=== PATIENT | female | born 1980 | race Caucasian/White ===

== ENCOUNTER 2016-11-22 11:05 | Inpatient (IN) | payer BC ==
[2016-11-22] MEDS ORDERED: Sodium Chloride 0.9% 10 ML Syringe FLUSH PRN (11:32)
[2016-11-22] MEDS ORDERED: Ampicillin 2 GM in Sodium Chloride 0.9% 100 ML IV ONE (11:32)
[2016-11-22] MEDS ORDERED: Butorphanol 1 MG/ML SDV IVPUSH PRN (11:32)
[2016-11-22] MEDS ORDERED: Terbutaline 1 MG/ML SDV SUBCUT PRN (11:32)
[2016-11-22] MEDS ORDERED: Methylergonovine 0.2 MG/1 ML Amp IM PRN (11:32)
[2016-11-22] MEDS ORDERED: Lidocaine 1% 50 ML MDV INJECT PRN (11:32)
[2016-11-22] MEDS ORDERED: Sodium Chloride 0.9% 2.5 ML Syringe FLUSH PRN (11:32)
[2016-11-22] MEDS ORDERED: Misoprostol 200 MCG Tab PO PRN (11:32)
[2016-11-22] MEDS ORDERED: Water For Irrigation,Sterile 1,000 ML Container IRR PRN (11:32)
[2016-11-22] MEDS ORDERED: Carboprost Tromethamine 250 MCG/1 ML Amp IM PRN (11:32)
[2016-11-22] MEDS ORDERED: Nalbuphine 10 MG/1 ML Vial IVPUSH PRN (11:32)
[2016-11-22] MEDS ORDERED: Oxytocin/Lactated Ringers 30 UNIT/500 ML BAG IV SCH ×2 (11:45)
[2016-11-22] MEDS: Lactated Ringers 1,000 ML IV SCH ×2 (12:21→18:24)
[2016-11-22] MEDS ORDERED: Ampicillin 1 GM in Sodium Chloride 0.9% 50 ML IV SCH (15:45)
[2016-11-22] MEDS ORDERED: fentaNYL 100 MCG/2 ML SDV ONE ×2 (18:34)
[2016-11-22] MEDS ORDERED: Ropivacaine HCl/PF 100 ML ONE (18:35)
--- NOTE | 2016-11-22 19:29 | PCM.PREANE ---
Preanesthetic Assessment - Anesthesia/Transfusion/Family Hx Anesthesia History: Prior Anesthesia Without Reaction Family History of Anesthesia Reaction: No Transfusion History: No Prior Transfusion(s) Intubation History: Unknown - Review of Systems General: No Symptoms Pulmonary: No Symptoms Cardiovascular: No Symptoms Gastrointestinal: No symptoms Neurological: No Symptoms Other: Reports: None - Physical Assessment Height: 1.63 m Weight: 74.843 kg ASA Class: 2 Mental Status: Alert & Oriented x3 Airway Class: Mallampati = 2 Dentition: Reports: Normal Dentition Thyro-Mental Finger Breadths: 3 Mouth Opening Finger Breadths: 3 ROM/Head Extension: Full Lungs: Clear to auscultation, Normal respiratory effort Cardiovascular: Regular Rate, Regular Rhythm - Lab Values: Laboratory Last Values WBC 7.41 K/uL (4.0-11.0) 11/22/16 12:12 RBC 4.12 M/uL (4.30-5.90) L 11/22/16 12:12 Hgb 11.4 g/dL (12.0-16.0) L 11/22/16 12:12 Hct 35.0 % (36.0-46.0) L 11/22/16 12:12 MCV 85.0 fL (80.0-98.0) 11/22/16 12:12 MCH 27.7 pg (27.0-32.0) 11/22/16 12:12 MCHC 32.6 g/dL (31.0-37.0) 11/22/16 12:12 RDW Std Deviation 47.0 fl (28.0-62.0) 11/22/16 12:12 RDW Coeff of Jose Roberto 15 % (11.0-15.0) 11/22/16 12:12 Plt Count 191 K/uL (150-400) 11/22/16 12:12 MPV 12.40 fL (7.40-12.00) H 11/22/16 12:12 Nucleated RBC % 0.0 /100WBC 11/22/16 12:12 Nucleated RBCs # 0 K/uL 11/22/16 12:12 Blood Type B NEGATIVE 11/22/16 12:12 Antibody Screen NEGATIVE 11/22/16 12:12 - Allergies Allergies/Adverse Reactions: Allergies Allergy/AdvReac Type Severity Reaction Status Date / Time No Known Allergies Allergy Verified 11/22/16 11:30 - Blood Blood Available: No - Anesthesia Plan Pre-Op Medication Ordered: None - Acknowledgements Anesthesia Type Planned: Epidural Pt an Appropriate Candidate for the Planned Anesthesia: Yes Alternatives and Risks of Anesthesia Discussed w Pt/Guardian: Yes Pt/Guardian Understands and Agrees with Anesthesia Plan: Yes PreAnesthesia Questionnaire ENGLISH [employer] History: Reports: , Other (See Below) Other OB/BYN History: history of abruptio placenta Neurological History: Reports: Migraines Psychiatric History: Reports: Depression Hematologic History: Reports: Anticoagulation Therapy, Other (See Below) Other Hematologic History: Factor V leinden mutation - SUBSTANCE USE Smoking Status *Q: Never Smoker Second Hand Smoke Exposure: No Recreational Drug Use History: No - CURRENT (IN HOUSE) MEDS Current Meds: Current Medications Butorphanol Tartrate (Stadol) 1 mg IVPUSH ASDIRECTED PRN PRN Reason: Pain Last Admin: 11/22/16 18:23 Dose: 1 mg Carboprost Tromethamine (Hemabate Ds) 250 mcg IM ASDIRECTED PRN PRN Reason: Post Hemorrhage Ampicillin Sodium 1 gm/ Sodium (Chloride) 50 mls @ 100 mls/hr IV Q4H [facility] Last Admin: 11/22/16 16:23 Dose: 100 mls/hr Lactated Ringer's (Ringers, Lactated) 1,000 mls @ 150 mls/hr IV ASDIRECTED [facility]O Last Infusion: 11/22/16 18:26 Dose: 999 mls/hr Oxytocin/Lactated Ringer's (Pitocin In Lr 30 Units/500 Ml) 30 unit in 500 mls @ 2 mls/hr IV TITRATE VETO; 2 MUNITS/MIN PRN Reason: Protocol Last Titration: 11/22/16 19:05 Dose: 999 munits/min, 999 mls/hr Lidocaine HCl (Xylocaine 1%) 50 ml INJECT .ONCE PRN PRN Reason: Laceration repair Methylergonovine Maleate (Methergine) 0.2 mg IM ASDIRECTED PRN PRN Reason: Post Hemorrhage Misoprostol (Cytotec) 200 mcg PO .ONCE PRN PRN Reason: Post Hemorrhage Nalbuphine HCl (Nubain) 10 mg IVPUSH ASDIRECTED PRN PRN Reason: Pain (severe 7-10) Stop: 11/24/16 11:33 Sodium Chloride (Saline Flush) 10 ml FLUSH ASDIRECTED PRN PRN Reason: Keep Vein Open Sodium Chloride (Saline Flush) 2.5 ml FLUSH ASDIRECTED PRN PRN Reason: Keep Vein Open Sterile Water (Sterile Water For Irrigation) 1,000 ml IRR ASDIRECTED PRN PRN Reason: delivery Last Admin: 11/22/16 19:15 Dose: 1,000 ml Terbutaline Sulfate (Brethine) 0.25 mg SUBCUT ASDIRECTED PRN PRN Reason: Tacysystole Discontinued Medications Fentanyl (Sublimaze) Confirm Administered Dose 100 mcg .ROUTE .STK-MED ONE Stop: 11/22/16 18:35 Fentanyl (Sublimaze) Confirm Administered Dose 100 mcg .ROUTE .STK-MED ONE Stop: 11/22/16 18:35 Ampicillin Sodium 2 gm/ Sodium (Chloride) 100 mls @ 200 mls/hr IV ONETIME ONE Stop: 11/22/16 12:01 Last Admin: 11/22/16 12:21 Dose: 200 mls/hr Oxytocin/Lactated Ringer's (Pitocin In Lr 30 Units/500 Ml) 30 unit in 500 mls @ 999 mls/hr IV ASDIRECTED [facility]ETO PRN Reason: 999 MUNITS/MIN Stop: 11/22/16 12:16 Ropivacaine (Naropin 0.2%) Confirm Administered Dose 100 mls @ as directed .ROUTE .STK-MED ONE Stop: 11/22/16 18:36
[2016-11-22] MEDS ORDERED: oxyCODONE 5 MG Tab PO PRN (19:34)
[2016-11-22] MEDS ORDERED: Witch Hazel Medicated Pads 40/Jar TOP PRN (19:34)
[2016-11-22] MEDS ORDERED: Bisacodyl 10 MG Supp RECTAL PRN (19:34)
[2016-11-22] MEDS ORDERED: Lanolin 100% Cream 7 GM Tube TOP PRN (19:34)
[2016-11-22] MEDS ORDERED: Benzocaine/Menthol 20%-0.5% Spray 78 GM Cannister TOP PRN (19:34)
[2016-11-22] MEDS ORDERED: Acetaminophen 500 MG Tab PO PRN ×2 (19:34)
[2016-11-22] MEDS ORDERED: Ibuprofen 400 MG Tab PO PRN (19:34)
--- NOTE | 2016-11-23 02:01 | OR ---
SURGEON: Ludy Cano MD DATE OF PROCEDURE: 11/22/2016 PREOPERATIVE DIAGNOSES: 1. Term at 38 weeks gestation. 2. Oligohydramnios. 3. GBS positive. POSTOPERATIVE DIAGNOSES: 1. Term at 38 weeks gestation. 2. Oligohydramnios. 3. GBS positive. 4. Delivered. PROCEDURES: 1. Spontaneous vaginal delivery. 2. Repair of first-degree perineal laceration. ANESTHESIA: Epidural. ESTIMATED BLOOD LOSS: 150 mL. COMPLICATIONS: None. DISPOSITION: Mother and baby stable in Labor and Delivery room, bonding. FINDINGS: Female , weight 2970 g. Apgars 8 and 9 at 1 and 5 minutes respectively. Grossly normal placenta with 3-vessel cord. First-degree perineal laceration. BRIEF HISTORY: The patient is a 36-year-old G4, P3, who was seen today in the clinic for routine visit, at which she had a biophysical profile, which showed oligohydramnios with a DVP of 0.98 (no 2 x 2 pocket was visualized). Otherwise, the BPP was 8/10. The patient declined leakage of fluid, vaginal bleeding and reported active fetus. Her care is complicated by history of Factor V Leiden deficiency, for which she has been on prophylactic heparin (10,000 units SQ b.i.d). The patient has not taking any heparin in the last 24 hours as she has been experiencing irregular contractions. GBS positive. No amniotic fluid was seen in the vagina and AmniSure was performed, which was negative. On examination, she was 1-2 cm dilated, 70% effaced, station -2. Discussed oligohydramnios at term with couple, she was sent over to Labor and Delivery for induction of labor with oxytocin. She received Ampicillin for GBS prophylaxis. Oxytocin was commenced, artificial rupture of membranes was performed a few hours later,she was 3 cm dilated then,a scanty amount of clear amniotic fluid was seen. She then received epidural for pain management. Shortly after the epidural, she was re-examined and found to be fully dilated, this was actually about an hour and a half after the artificial rupture of membrane was performed. heart tracing was a category I. She commenced active pushing, pushing quite well, bringing the head down to a + 4 and was set up for delivery in a modified dorsal lithotomy position. DESCRIPTION OF PROCEDURE: She had a spontaneous vaginal delivery of a live female in AYANNA position, loose nuchal cord, which was easily reduced. Clear amniotic fluid at delivery. Anterior and posterior shoulders and the rest of the baby was delivered without difficulty. The baby was vigorous and cried spontaneously at and was delivered onto the maternal abdomen, delayed cord clamping was performed, and the cord was cut. Cord blood and gas samples were obtained. With delivery of the infant, oxytocin infusion was converted to titration for active management of third stage of labor. Placenta was delivered by controlled cord traction, appeared to be complete and intact. Uterine massage was performed. The uterus was found to be well contracted. Examination of the perineum revealed a first-degree laceration, which was repaired with 3-0 Vicryl suture, hemostatic post repair. The patient tolerated the procedure well. Instrument, needle, and sponge counts were correct at the end of the delivery. ADUMVIV / MODL /[id number] MTDD
--- NOTE | 2016-11-23 06:06 | PCM.PNPP ---
- General Info Date of Service: 11/23/16 Functional Status: Reports: pain controlled, tolerating diet, ambulating, urinating - Review of Systems General: Denies: Fever, Weakness, Chills HEENT: Denies: headaches Pulmonary: Denies: shortness of breath, cough Cardiovascular: Denies: Chest Pain, Palpitations, Dyspnea on Exertion Gastrointestinal: Denies: Abdominal pain Genitourinary: Denies: dysuria, incontinence Psychiatric: Denies: depression, mood lability, anxiety - General Info Date of Service: 11/23/16 - Patient Data Vital Signs - most recent: Last Vital Signs Temp 36.8 C 11/23/16 04:00 Pulse 81 11/23/16 04:00 Resp 15 11/23/16 04:00 BP 122/76 11/23/16 04:00 Pulse Ox 97 11/23/16 04:00 Weight - most recent: 165 lb Lab Results - last 24 hrs: Laboratory Results - last 24 hr 11/22/16 11/22/16 11/23/16 Range/Units 12:12 12:12 04:55 WBC 7.41 (4.0-11.0) K/uL RBC 4.12 L (4.30-5.90) M/uL Hgb 11.4 L 10.2 L (12.0-16.0) g/dL Hct 35.0 L 30.9 L (36.0-46.0) % MCV 85.0 (80.0-98.0) fL MCH 27.7 (27.0-32.0) pg MCHC 32.6 (31.0-37.0) g/dL RDW Std Deviation 47.0 (28.0-62.0) fl RDW Coeff of Jose Roberto 15 (11.0-15.0) % Plt Count 191 (150-400) K/uL MPV 12.40 H (7.40-12.00) fL Nucleated RBC % 0.0 /100WBC Nucleated RBCs # 0 K/uL Blood Type B NEGATIVE Antibody Screen NEGATIVE Med Orders - Current: Current Medications Acetaminophen (Tylenol Extra Strength) 500 mg PO Q4H PRN PRN Reason: Pain Acetaminophen (Tylenol Extra Strength) 1,000 mg PO Q4H PRN PRN Reason: Pain Benzocaine/Menthol (Dermoplast Pain Relief 20%-0.5% [place]) 78 gm TOP ASDIRECTED PRN PRN Reason: Perineal Comfort Measure Bisacodyl (Dulcolax) 10 mg RECTAL .ONCE PRN PRN Reason: Constipation Docusate Sodium (Colace) 100 mg PO BID PRN PRN Reason: Constipation Emollient Ointment (Lansinoh Hpa) 0 gm TOP ASDIRECTED PRN PRN Reason: Sore Nipples Ibuprofen (Motrin) 400 mg PO Q4H PRN PRN Reason: Pain Ibuprofen (Motrin) 800 mg PO Q6H PRN PRN Reason: Pain Oxycodone HCl (Oxycodone) 5 mg PO Q2H PRN PRN Reason: Pain Witch Jessica (Tucks) 1 pad TOP ASDIRECTED PRN PRN Reason: comfort care Discontinued Medications Butorphanol Tartrate (Stadol) 1 mg IVPUSH ASDIRECTED PRN PRN Reason: Pain Last Admin: 11/22/16 18:23 Dose: 1 mg Carboprost Tromethamine (Hemabate Ds) 250 mcg IM ASDIRECTED PRN PRN Reason: Post Hemorrhage Fentanyl (Sublimaze) Confirm Administered Dose 100 mcg .ROUTE .STK-MED ONE Stop: 11/22/16 18:35 Fentanyl (Sublimaze) Confirm Administered Dose 100 mcg .ROUTE .STK-MED ONE Stop: 11/22/16 18:35 Ampicillin Sodium 2 gm/ Sodium (Chloride) 100 mls @ 200 mls/hr IV ONETIME ONE Stop: 11/22/16 12:01 Last Admin: 11/22/16 12:21 Dose: 200 mls/hr Ampicillin Sodium 1 gm/ Sodium (Chloride) 50 mls @ 100 mls/hr IV Q4H [facility] Last Admin: 11/22/16 16:23 Dose: 100 mls/hr Lactated Ringer's (Ringers, Lactated) 1,000 mls @ 150 mls/hr IV ASDIRECTED [facility] Last Infusion: 11/22/16 18:26 Dose: 999 mls/hr Oxytocin/Lactated Ringer's (Pitocin In Lr 30 Units/500 Ml) 30 unit in 500 mls @ 999 mls/hr IV ASDIRECTED [facility] PRN Reason: 999 MUNITS/MIN Stop: 11/22/16 12:16 Oxytocin/Lactated Ringer's (Pitocin In Lr 30 Units/500 Ml) 30 unit in 500 mls @ 2 mls/hr IV TITRATE VETO; 2 MUNITS/MIN PRN Reason: Protocol Last Titration: 11/22/16 19:05 Dose: 999 munits/min, 999 mls/hr Ropivacaine (Naropin 0.2%) Confirm Administered Dose 100 mls @ as directed .ROUTE .STK-MED ONE Stop: 11/22/16 18:36 Lidocaine HCl (Xylocaine 1%) 50 ml INJECT .ONCE PRN PRN Reason: Laceration repair Methylergonovine Maleate (Methergine) 0.2 mg IM ASDIRECTED PRN PRN Reason: Post Hemorrhage Misoprostol (Cytotec) 200 mcg PO .ONCE PRN PRN Reason: Post Hemorrhage Nalbuphine HCl (Nubain) 10 mg IVPUSH ASDIRECTED PRN PRN Reason: Pain (severe 7-10) Stop: 11/24/16 11:33 Sodium Chloride (Saline Flush) 10 ml FLUSH ASDIRECTED PRN PRN Reason: Keep Vein Open Sodium Chloride (Saline Flush) 2.5 ml FLUSH ASDIRECTED PRN PRN Reason: Keep Vein Open Sterile Water (Sterile Water For Irrigation) 1,000 ml IRR ASDIRECTED PRN PRN Reason: delivery Last Admin: 11/22/16 19:15 Dose: 1,000 ml Terbutaline Sulfate (Brethine) 0.25 mg SUBCUT ASDIRECTED PRN PRN Reason: Tacysystole - Interaction Disposition, : in Room with Family Interaction: Holding Infant Infant Feeding: Attempted ; Nursed Fair/Poor, Continues to Breastfeed Support Person: - Recovery Exam Fundal Tone: Firm Fundal Level: At Umbilicus Fundal Placement: Midline Lochia Amount: Scant Lochia Color: Rubra/Red Perineum Description: Intact, Minimal Bruising/Swelling Episiotomy/Laceration: Approximated Bladder Status: Nonpalpable Urinary Elimination: Voided - Exam General: alert, oriented Lungs: Clear to auscultation, Normal respiratory effort Cardiovascular: Regular Rate, Regular Rhythm Abdomen: soft, no tenderness, no distension Extremities: no edema Neurological: no new focal deficit Psy/Mental Status: alert, normal affect, normal mood - Problem List & Annotations (1) Vaginal delivery SNOMED Code(s): 082168548 Code(s): O80 - ENCOUNTER FOR FULL-TERM UNCOMPLICATED DELIVERY Status: Acute Current Visit: Yes (2) Factor 5 Leiden mutation, heterozygous SNOMED Code(s): 610523947 Code(s): D68.51 - ACTIVATED PROTEIN C RESISTANCE Status: Acute Current Visit: Yes - Problem List Review Problem List Initiated/Reviewed/Updated: Yes - My Orders Last 24 Hours: My Active Orders 11/22/16 19:34 Patient Status [ADT] Routine May Shower [RC] ASDIRECTED Up ad Ricarda [RC] ASDIRECTED Vital Signs [RC] PER UNIT ROUTINE Acetaminophen [Tylenol Extra Strength] 1,000 mg PO Q4H PRN Acetaminophen [Tylenol Extra Strength] 500 mg PO Q4H PRN Benzocaine/Menthol [Dermoplast Pain Relief 20%-0.5% [place]] 78 gm TOP ASDIRECTED PRN Bisacodyl [Dulcolax] 10 mg RECTAL .ONCE PRN Docusate Sodium [Colace] 100 mg PO BID PRN Ibuprofen [Motrin] 400 mg PO Q4H PRN Ibuprofen [Motrin] 800 mg PO Q6H PRN Lanolin [Lansinoh HPA] See Dose Instructions TOP ASDIRECTED PRN Witch Jessica [Tucks] 1 pad TOP ASDIRECTED PRN oxyCODONE 5 mg PO Q2H PRN Assess Lochia [WOMSER] Per Unit Routine Assess Uterine Involution [WOMSER] Per Unit Routine Breast Pump [WOMSER] Per Unit Routine Peripheral IV Discontinue [OM.PC] Routine Resuscitation Status Routine 11/22/16 19:35 Perineal Care [OM.PC] Per Unit Routine 11/23/16 Breakfast Regular Diet [DIET] - Assessment Assessment:: PPD#1 s/p , stable and afebrile - Plan Plan:: Patient might stay another night depending on how breast feeding is going. May restart prophylactic heparin this am- may use her own supply, 00105 units q 12 hours Reviewed discharge instructions- nothing in the vagina for 6 weeks Bleeding an infection precautions reviewed Follow up in 6 weeks. Patient may be discharged tonight depending on baby.
[2016-11-23] MEDS ORDERED: HEPARIN SODIUM SUBCUT SCH (08:00)
--- NOTE | 2016-11-23 09:09 | PCM48HPAN ---
Post Anesthesia Note - EVALUATION WITHIN 48HRS OF ANESTHETIC Vital Signs in Normal Range: Yes Patient Participated in Evaluation: Yes Respiratory Function Stable: Yes Airway Patent: Yes Cardiovascular Function Stable: Yes Hydration Status Stable: Yes Pain Control Satisfactory: Yes Nausea and Vomiting Control Satisfactory: Yes Mental Status Recovered: Yes - COMMENTS/OBSERVATIONS Free Text/Narrative:: Denies any complaints at this time
[2016-11-23] MEDS: Docusate Sodium 100 MG Cap PO PRN (09:14)
[2016-11-23] MEDS: HEPARIN SODIUM SUBCUT SCH ×2 (09:35→21:45)
[2016-11-23] MEDS: Ibuprofen 800 MG Tab PO PRN (20:08)
[2016-11-24] MEDS: Ibuprofen 800 MG Tab PO PRN (03:26)
[2016-11-24 09:23] VITALS: BP 108/65
[2016-11-24] MEDS: Docusate Sodium 100 MG Cap PO PRN (09:55)
[2016-11-24] MEDS: HEPARIN SODIUM SUBCUT SCH (09:56)
--- NOTE | 2016-11-24 13:04 | PCM.PNPP ---
- General Info Date of Service: 11/24/16 Functional Status: Reports: pain controlled, tolerating diet, ambulating, urinating - Review of Systems General: Reports: No Symptoms HEENT: Reports: no symptoms Pulmonary: Reports: no symptoms Cardiovascular: Reports: No Symptoms Gastrointestinal: Reports: No symptoms Genitourinary: Reports: no symptoms Musculoskeletal: Reports: no symptoms Skin: Reports: no symptoms Neurological: Reports: No Symptoms Psychiatric: Reports: no symptoms - General Info Date of Service: 11/24/16 - Patient Data Vital Signs - most recent: Last Vital Signs Temp 36.4 C 11/24/16 09:18 Pulse 82 11/24/16 09:18 Resp 16 11/24/16 09:18 BP 108/65 11/24/16 09:18 Pulse Ox 98 11/24/16 09:18 Weight - most recent: 74.843 kg Med Orders - Current: Current Medications Acetaminophen (Tylenol Extra Strength) 500 mg PO Q4H PRN PRN Reason: Pain Acetaminophen (Tylenol Extra Strength) 1,000 mg PO Q4H PRN PRN Reason: Pain Last Admin: 11/24/16 11:52 Dose: 1,000 mg Benzocaine/Menthol (Dermoplast Pain Relief 20%-0.5% [place]) 78 gm TOP ASDIRECTED PRN PRN Reason: Perineal Comfort Measure Bisacodyl (Dulcolax) 10 mg RECTAL .ONCE PRN PRN Reason: Constipation Docusate Sodium (Colace) 100 mg PO BID PRN PRN Reason: Constipation Last Admin: 11/24/16 09:55 Dose: 100 mg Emollient Ointment (Lansinoh Hpa) 0 gm TOP ASDIRECTED PRN PRN Reason: Sore Nipples Ibuprofen (Motrin) 400 mg PO Q4H PRN PRN Reason: Pain Ibuprofen (Motrin) 800 mg PO Q6H PRN PRN Reason: Pain Last Admin: 11/24/16 03:26 Dose: 800 mg Oxycodone HCl (Oxycodone) 5 mg PO Q2H PRN PRN Reason: Pain Heparin Sodium 5,000 Units/Ml Vial *Own Med 1 each SUBCUT Q12H [facility]ET[facility] Last Admin: 11/24/16 09:56 Dose: 1 each Witch Jessica (Tucks) 1 pad TOP ASDIRECTED PRN PRN Reason: comfort care Discontinued Medications Butorphanol Tartrate (Stadol) 1 mg IVPUSH ASDIRECTED PRN PRN Reason: Pain Last Admin: 11/22/16 18:23 Dose: 1 mg Carboprost Tromethamine (Hemabate Ds) 250 mcg IM ASDIRECTED PRN PRN Reason: Post Hemorrhage Fentanyl (Sublimaze) Confirm Administered Dose 100 mcg .ROUTE .STK-MED ONE Stop: 11/22/16 18:35 Fentanyl (Sublimaze) Confirm Administered Dose 100 mcg .ROUTE .STK-MED ONE Stop: 11/22/16 18:35 Heparin Sodium (Porcine) (Heparin Sodium) 10,000 units SUBCUT Q12H [facility]ETO Ampicillin Sodium 2 gm/ Sodium (Chloride) 100 mls @ 200 mls/hr IV ONETIME ONE Stop: 11/22/16 12:01 Last Admin: 11/22/16 12:21 Dose: 200 mls/hr Ampicillin Sodium 1 gm/ Sodium (Chloride) 50 mls @ 100 mls/hr IV Q4H [facility] Last Admin: 11/22/16 16:23 Dose: 100 mls/hr Lactated Ringer's (Ringers, Lactated) 1,000 mls @ 150 mls/hr IV ASDIRECTED [facility] Last Infusion: 11/22/16 18:26 Dose: 999 mls/hr Oxytocin/Lactated Ringer's (Pitocin In Lr 30 Units/500 Ml) 30 unit in 500 mls @ 999 mls/hr IV ASDIRECTED [facility] PRN Reason: 999 MUNITS/MIN Stop: 11/22/16 12:16 Oxytocin/Lactated Ringer's (Pitocin In Lr 30 Units/500 Ml) 30 unit in 500 mls @ 2 mls/hr IV TITRATE VETO; 2 MUNITS/MIN PRN Reason: Protocol Last Titration: 11/22/16 19:05 Dose: 999 munits/min, 999 mls/hr Ropivacaine (Naropin 0.2%) Confirm Administered Dose 100 mls @ as directed .ROUTE .STK-MED ONE Stop: 11/22/16 18:36 Lidocaine HCl (Xylocaine 1%) 50 ml INJECT .ONCE PRN PRN Reason: Laceration repair Methylergonovine Maleate (Methergine) 0.2 mg IM ASDIRECTED PRN PRN Reason: Post Hemorrhage Misoprostol (Cytotec) 200 mcg PO .ONCE PRN PRN Reason: Post Hemorrhage Nalbuphine HCl (Nubain) 10 mg IVPUSH ASDIRECTED PRN PRN Reason: Pain (severe 7-10) Stop: 11/24/16 11:33 Sodium Chloride (Saline Flush) 10 ml FLUSH ASDIRECTED PRN PRN Reason: Keep Vein Open Sodium Chloride (Saline Flush) 2.5 ml FLUSH ASDIRECTED PRN PRN Reason: Keep Vein Open Sterile Water (Sterile Water For Irrigation) 1,000 ml IRR ASDIRECTED PRN PRN Reason: delivery Last Admin: 11/22/16 19:15 Dose: 1,000 ml Terbutaline Sulfate (Brethine) 0.25 mg SUBCUT ASDIRECTED PRN PRN Reason: Tacysystole - Infant Interaction Infant Disposition, : in Room with Family Infant Interaction: Holding Infant Infant Feeding: Attempted ; Nursed Fair/Poor, Continues to Breastfeed Support Person: - Recovery Exam Fundal Tone: Firm Fundal Level: At Umbilicus Fundal Placement: Midline Lochia Amount: Scant Lochia Color: Rubra/Red Perineum Description: Intact, Minimal Bruising/Swelling Other Perinuem Description: First degree tear, repaired Episiotomy/Laceration: Approximated Bladder Status: Voiding Urinary Elimination: Voided - Exam General: alert, oriented Neck: supple Lungs: Clear to auscultation, Normal respiratory effort Cardiovascular: Regular Rate, Regular Rhythm Abdomen: bowel sounds present, soft, no tenderness Extremities: no calf tenderness Skin: warm, dry, intact Neurological: no new focal deficit Psy/Mental Status: alert, normal affect, normal mood - Problem List & Annotations (1) Factor 5 Leiden mutation, heterozygous SNOMED Code(s): 793411210 Code(s): D68.51 - ACTIVATED PROTEIN C RESISTANCE Status: Acute Current Visit: Yes (2) Vaginal delivery SNOMED Code(s): 538980163 Code(s): O80 - ENCOUNTER FOR FULL-TERM UNCOMPLICATED DELIVERY Status: Acute Current Visit: Yes - Problem List Review Problem List Initiated/Reviewed/Updated: Yes - My Orders Last 24 Hours: My Active Orders 11/24/16 13:02 Ready for Discharge [RC] PER UNIT ROUTINE - Assessment Assessment:: PPD#2 s/p , stable and afebrile Ready for discharge home - Plan Plan:: Discharge home today with follow up in 6wks Pelvic rest for 6wks Infection precautions Bleeding precautions Thrombotic precautions blues/depression precautions
== END 2016-11-24 14:45 | disposition home or self-care (01) | DRG 560 ==
LOC: MW.OBCHECK 11:05 → MW.OB 11:54 → MW.OBCHECK 12:21 → MW.OB 12:22 → OBSVTOIN 19:34 → MW.OB 11-23 00:02
PROVIDERS: ADMIT Obstetrics & Gynecology; ATTEND Obstetrics & Gynecology
PROC: 10E0XZZ Delivery of Products of Conception, External Approach (ICD-10-PCS; principal; 2016-11-22)
PROC: 0HQ9XZZ Repair Perineum Skin, External Approach (ICD-10-PCS; 2016-11-22)
PROC: 3E033VJ Introduction of Other Hormone into Peripheral Vein, Percutaneous Approach (ICD-10-PCS; 2016-11-22)
PROC: 10907ZC Drainage of Amniotic Fluid, Therapeutic from Products of Conception, Via Natural or Artificial Opening (ICD-10-PCS; 2016-11-22)
DX: O41.03X0 Oligohydramnios, third trimester, not applicable or unspecified (principal); O70.0 First degree perineal laceration during delivery; O99.12 Other diseases of the blood and blood-forming organs and certain disorders involving the immune mechanism complicating childbirth; D68.51 Activated protein C resistance; Z3A.38 38 weeks gestation of pregnancy; Z37.0 Single live birth; Z22.330 Carrier of Group B streptococcus
CPT/HCPCS: 01967; 36415; 59025; 85014; 85018; 85027; 86850; 86900; 86901; A9270-GY; J0290; J0595; J2795; J3010; J7030; J7050; J7120

== ENCOUNTER 2016-11-25 09:31 | Emergency (ER) | payer BC ==
--- NOTE | 2016-11-25 10:33 | EDM.PDOC ---
ED HPI GENERAL MEDICAL PROBLEM - General Chief Complaint: ENT Problem Stated Complaint: TOOTH ACHE Time Seen by Provider: 11/25/16 10:27 Source of Information: Reports: Patient History Limitations: Reports: No Limitations - History of Present Illness INITIAL COMMENTS - FREE TEXT/NARRATIVE: History of present illness: [36 year old female comes in complaining of dental pain. Patient has chipped tooth and swelling and pain with it. Patient was unable to reach her dentist and have it addressed because patient had recently delivered her child and as such was not free to travel to [place] where her dentist's.] Review of systems: As per history of present illness and below otherwise all systems reviewed and negative. Past medical history: As per history of present illness and as reviewed below otherwise noncontributory. Surgical history: As per history of present illness and as reviewed below otherwise noncontributory. Social history: No reported history of drug or alcohol abuse. Family history: As per history of present illness and as reviewed below otherwise noncontributory. Physical exam: HEENT: Atraumatic, normocephalic, pupils reactive, negative for conjunctival pallor or scleral icterus, mucous membranes moist, throat clear, neck supple, nontender, trachea midline. Lungs: Clear to auscultation, breath sounds equal bilaterally, chest nontender. Heart: S1S2, regular, negative for clicks, rubs, or JVD. Abdomen: Soft, nondistended, nontender. Negative for masses or hepatosplenomegaly. Negative for costovertebral tenderness. Pelvis: Stable nontender. Genitourinary: Deferred. Rectal: Deferred. Extremities: Atraumatic, negative for cords or calf pain. Neurovascular unremarkable. Neuro: Awake, alert, oriented. Cranial nerves II through XII unremarkable. Cerebellum unremarkable. Motor and sensory unremarkable throughout. Exam nonfocal. Global assessment is benign save some slight internal, swelling and significant amount of tenderness and obvious chipped tooth in the region of 17. Diagnostics: [] Therapeutics: [] Impression: [Fractured tooth, early abscess] Plan: [Antibiotics and T3] Definitive disposition and diagnosis as appropriate pending reevaluation and review of above. tooth Pain Score (Numeric/FACES): 8 - Related Data Allergies Allergy/AdvReac Type Severity Reaction Status Date / Time No Known Allergies Allergy Verified 11/25/16 09:48 Home Meds: Home Meds Acetaminophen with Codeine [Tylenol with Codeine #3 Tablet] 1 each PO Q4HR #30 tablet 11/25/16 [Rx] Amoxicillin [IMW: Amoxicillin] 500 mg PO .THREE TIMES DAILY #30 cap 11/25/16 [Rx ] Heparin Sod,Porcine-0.9 % NaCl [Heparin-Ns 10,000 Units/1,000] 10,000 units SQ BID 11/25/16 [History] Past Medical History - Past Health History Medical/Surgical History: Denies Medical/Surgical History [employer] History: Reports: , Other (See Below) Other OB/BYN History: history of abruptio placenta Neurological History: Reports: Migraines Psychiatric History: Reports: Depression Hematologic History: Reports: Anticoagulation Therapy, Other (See Below) Other Hematologic History: Factor V leinden mutation Social & Family History - Family History Family Medical History: Noncontributory - Tobacco Use Smoking Status *Q: Never Smoker Second Hand Smoke Exposure: No - Caffeine Use Caffeine Use: Reports: None - Recreational Drug Use Recreational Drug Use: No ED ROS GENERAL - Review of Systems Review Of Systems: See Below (See history of present illness) ED EXAM, GENERAL - Physical Exam Exam: See Below (See history of present illness) Course - Vital Signs Last Recorded V/S: Last Vital Signs Temp 36.4 C 11/25/16 09:50 Pulse 85 11/25/16 09:50 Resp 16 11/25/16 09:50 BP 146/97 H 11/25/16 09:50 Pulse Ox 99 11/25/16 09:50 Departure - Departure Time of Disposition: 10:37 Disposition: Home, Self-Care 01 Condition: good Clinical Impression: Fracture of tooth - Discharge Information Forms: ED Department Discharge Additional Instructions: The following information is given to patients seen in the emergency department who are being discharged to home. This information is to outline your options for follow-up care. We provide all patients seen in our emergency department with a follow-up referral. The need for follow-up, as well as the timing and circumstances, are variable depending upon the specifics of your emergency department visit. If you don't have a primary care physician on staff, we will provide you with a referral. We always advise you to contact your personal physician following an emergency department visit to inform them of the circumstance of the visit and for follow-up with them and/or the need for any referrals to a consulting specialist. The emergency department will also refer you to a specialist when appropriate. This referral assures that you have the opportunity for follow-up care with a specialist. All of these measure are taken in an effort to provide you with optimal care, which includes your follow-up. Under all circumstances we always encourage you to contact your private physician who remains a resource for coordinating your care. When calling for follow-up care, please make the office aware that this follow-up is from your recent emergency room visit. If for any reason you are refused follow-up, please contact the [facility] Emergency Department at and asked to speak to the emergency department. Take medication as directed Follow-up with the dentist LUANA Return to ED as needed as discussed
[2016-11-25 11:16] VITALS: BP 120/68
== END 2016-11-25 10:45 | disposition home or self-care (01) ==
LOC: MW.ED 09:31
DX: O9A.23 Injury, poisoning and certain other consequences of external causes complicating the puerperium (principal); S02.5XXA Fracture of tooth (traumatic), initial encounter for closed fracture; O99.345 Other mental disorders complicating the puerperium; F32.9 Major depressive disorder, single episode, unspecified; Z79.899 Other long term (current) drug therapy
CPT/HCPCS: 99282; 99283